=== PATIENT | female | born 1965 | race Two or more races ===

== ENCOUNTER 2016-12-19 17:58 | Emergency (ER) | payer OTHER ==
[~2016-12-19] VITALS: Ht 149.9 cm; Wt 72.6 kg
[2016-12-19 18:10] VITALS: BP 115/61
== END 2016-12-19 23:03 | disposition home or self-care (01) ==
LOC: ER 18:15
DX: M54.2 Cervicalgia (principal); R51 Headache; M79.632 Pain in left forearm; M25.512 Pain in left shoulder; V43.52XA Car driver injured in collision with other type car in traffic accident, initial encounter; Y93.89 Activity, other specified; Y99.8 Other external cause status; Y92.89 Other specified places as the place of occurrence of the external cause
CPT/HCPCS: 72125